=== PATIENT | male | born 1960 | race Caucasian/White ===

== ENCOUNTER 2018-05-20 11:15 | Emergency (ER) | payer OTHER ==
[~2018-05-20] VITALS: Ht 182.9 cm; Wt 86.6 kg
--- NOTE | 2018-05-20 11:31 | NUR ---
PT IS IN ROOM #1B. DR DANIEL EVALUATED HT PT.
--- NOTE | 2018-05-20 12:05 | NUR ---
PT WAS D/C'd TO HOME AFTER DR DANIEL EVALUATION. D/C INSTRUCTIONS GIVEN TO THE PT.
[2018-05-20 12:07] VITALS: BP 132/78
== END 2018-05-20 12:29 | disposition home or self-care (01) ==
LOC: ER 11:15
DX: R19.7 Diarrhea, unspecified (principal); E78.5 Hyperlipidemia, unspecified
CPT/HCPCS: A4663

== ENCOUNTER 2018-05-28 14:35 | Emergency (ER) | payer OTHER ==
[~2018-05-28] VITALS: Ht 182.9 cm; Wt 88.0 kg
[2018-05-28] MEDS ORDERED: VILA10TA PO (14:45)
[2018-05-28] MEDS ORDERED: ROSU20TA2 PO (14:45)
[2018-05-28 15:32] LABS: BASOPHILS % (AUTO) 0.1 % (0.0-2.0); EOSINOPHILS # (AUTO) 0.1 K/uL (0.0-0.7); EOSINOPHILS % (AUTO) 0.9 % (0.0-7.0); HEMATOCRIT 45.8 % (36.7-47.1); HEMOGLOBIN 15.6 g/dL (12.5-16.3); LYMPHOCYTES # (AUTO) 1.3 K/uL (20.0-40.0); LYMPHOCYTES % (AUTO) 9.6 % (20.5-51.5); MEAN CORPUSCULAR HEMOGLOBIN 29.7 uug (23.8-33.4); MEAN CORPUSCULAR HGB CONC 34 g/dL (32.5-36.3); MEAN CORPUSCULAR VOLUME 87.4 fL (73.0-96.2); MONOCYTES # (AUTO) 0.8 K/uL (2.0-10.0); MONOCYTES % (AUTO) 5.8 % (0.0-11.0); NEUTROPHILS # (AUTO) 11.4 K/uL (1.8-8.9); NEUTROPHILS % (AUTO) 83.6 % (38.5-71.5); PLATELET COUNT (AUTO) 330 K/uL (152-348); RED BLOOD CELL COUNT(AUTO) 5.24 MIL/uL (4.06-5.63); WHITE BLOOD COUNT (AUTO) 13.6 K/uL (3.6-10.2)
[2018-05-28 15:39] LABS: CREATININE 1.1 mg/dL (0.6-1.3)
--- NOTE | 2018-05-28 16:30 | NUR ---
Patient discharged to home in stable conditon. Written and verbal after care instructions given. Patient verbalizes understanding of instructions.PT WAKLS IN STEADY GAIT. DEMNIES ANY DIZZINESS.
[2018-05-28 16:33] VITALS: BP 117/79
== END 2018-05-28 16:35 | disposition home or self-care (01) ==
LOC: ER 14:35
DX: R19.7 Diarrhea, unspecified (principal); I25.2 Old myocardial infarction; E78.5 Hyperlipidemia, unspecified; Z79.899 Other long term (current) drug therapy
CPT/HCPCS: 36415; 85025; 86625; 87046; 87177; A4663